=== PATIENT | male | born 1980 | race Native Hawaiian/Other Pacific Islander ===

== ENCOUNTER 2017-11-20 11:24 | Emergency (ER) | payer SELFPAY ==
[2017-11-20 11:38] VITALS: BP 126/73; PULSE 76; RESP 17; TEMP 97.9; O2SAT 100
--- NOTE | 2017-11-20 12:09 | C.PDOC ---
History Of Present Illness 37 y/o male presents to the ED c/o of a diffuse rash on the upper back and lower leg. Patient reports the rash was pruritic and he treated it with topical alcohol, with no relief; patient denies taking benadryl for his symptoms. Patients denies shortness of breath and offers no additional medical complaints. Time Seen by Provider: 11/20/17 11:43 Chief Complaint (Nursing): Abnormal Skin Integrity History Per: Patient History/Exam Limitations: no limitations Onset/Duration Of Symptoms: Days Current Symptoms Are (Timing): Still Present Location Of Injury: Right: Leg, Left: Leg, Posterior: Back Quality Of Symptoms: Itching Recent travel outside of the [place]: No Past Medical History Reviewed: Historical Data, Nursing Documentation, Vital Signs Vital Signs: Last Vital Signs Temp 97.9 F 11/20/17 11:35 Pulse 76 11/20/17 11:35 Resp 17 11/20/17 11:35 BP 126/73 11/20/17 11:35 Pulse Ox 100 11/20/17 12:20 - Medical History PMH: HTN, Hyperthyroidism Family History: States: Unknown Family Hx - Social History Hx Alcohol Use: Yes Hx Substance Use: No - Immunization History Hx Tetanus Toxoid Vaccination: No Hx Influenza Vaccination: No Hx Pneumococcal Vaccination: No Review Of Systems Respiratory: Negative for: Shortness of Breath Skin: Positive for: Rash Physical Exam - Physical Exam Appears: Non-toxic, No Acute Distress Skin: Rash (diffuse urticaria noted to back and lower extremities) Head: Atraumatic, Normacephalic Eye(s): bilateral: Normal Inspection Neck: Supple Chest: Symmetrical Cardiovascular: Rhythm Regular Respiratory: Normal Breath Sounds Neurological/Psych: Oriented x3 Gait: Steady ED Course And Treatment O2 Sat by Pulse Oximetry: 100 (RA) Pulse Ox Interpretation: Normal Progress Note: Patient was given Benadryl, Pepcid, and prednisone Medical Decision Making Medical Decision Making: suspect allergic rxn/hives, lungs cta pt wel appearing, refues to wait in er for symptomatic improvement, requseting immediate dc s/p meds. Disposition - Disposition Referrals: [facility] [Outside] [facility] [Outside] Disposition: HOME/ ROUTINE Disposition Time: 12:00 Condition: GOOD Additional Instructions: follow up with your doctor/clinic. you may need further testing as outpatient return to er with worsening symptoms or concerns. Prescriptions: DiphenhydrAMINE [Benadryl] 25 mg PO Q4 PRN #20 cap PRN Reason: Itching / Pruritus Famotidine [Pepcid] 20 mg PO DAILY #10 tab Prednisone 50 mg PO DAILY #4 tablet Instructions: Hives, Skin Rash Forms: [employer] ([facility] [place]) - Clinical Impression Clinical Impression: Hives - Scribe Statement The provider has reviewed the documentation as recorded by the Hilda Gomezed Provider Attestation: All medical record entries made by the Hilda were at my direction and personally dictated by me. I have reviewed the chart and agree that the record accurately reflects my personal performance of the history, physical exam, medical decision making, and the department course for this patient. I have also personally directed, reviewed, and agree with the discharge instructions and disposition.
== END 2017-11-20 12:34 | disposition home or self-care (01) ==
LOC: C.ER 11:24
DX: L50.9 Urticaria, unspecified (principal)